=== PATIENT | male | born 1995 | race Caucasian/White ===

== ENCOUNTER 2017-07-12 18:31 | Emergency (ER) | payer OTHER, BC ==
--- NOTE | 2017-07-12 18:42 | EDPHY ---
H & P Stated Complaint: CUT 3RD DIGIT OF R HAND ON BROKEN GLASS BOTTLE AT WORK Time Seen by Provider: 07/12/17 18:41 HPI/ROS: HPI: This is a 21-year-old male who presents with Chief Complaint: CUT 3RD DIGIT OF R HAND ON BROKEN GLASS BOTTLE AT WORK Location: Tip of right middle finger Quality: Cut Duration: 15 minutes prior to arrival Signs and Symptoms: + bleeding, no radiation, no numbness, no weakness, no tingling, no decreased range of motion, no swelling, + pain Timing: acute Severity: mild to moderate Context: Patient is right-hand dominant and was at work when he put his hands inside a garbage can and accidentally cut the tip of his right middle finger on a liquor bottle. He reports mild acute pain that has since resolved accompanied by bleeding that continues despite applying pressure and wrapping with a bandage and plastic glove. Reports his tetanus up-to-date. Drove self to the emergency room. Denies any pain/paresthesias/decreased range of motion. Modifying Factors: Direct pressure Comment: ROS: see HPI Constitutional: No fever, no chills, no weight loss Eyes: No blurred vision Respiratory: No shortness of breath, no cough Cardiovascular: No chest pain Gastrointestinal: No nausea, no vomiting no diarrhea Genitourinary: No dysuria Extremities: No myalgias Neurologic: No weakness, no numbness Skin: No rashes Hematologic: No bruising, no bleeding MEDICAL/SURGICAL/SOCIAL HISTORY: Medical history: Generally healthy. Does not take any regular medications. Surgical history: Right arm fracture and repair Social history: Employed. CONSTITUTIONAL: Well-developed well-nourished young adult white male, awake and alert, no obvious distress HEENT: Atraumatic and normocephalic. NECK: supple, no midline tenderness, flexion 45 degrees, extension 45 degrees, right and left lateral flexion 45 degrees. No meningismus. Cardiovascular: Normal S1/S2, regular rate, regular rhythm, without murmur rub or gallop. PULMONARY/CHEST: Symmetrical and nontender. no crepitus. Clear to auscultation bilaterally. Good air movement. No accessory muscle usage. ABDOMEN: Soft, nondistended, nontender, no ecchymosis. EXTREMITIES: 2/2 pulses, right middle finger tip of pad shows 2 mm complete skin avulsion with mild bleeding. DIP/PIP flexion and extension intact. no deformities, no clubbing, no cyanosis or edema. NEUROLOGICAL: no focal neuro deficits. GCS 15. Light touch sensation intact. SKIN: Warm and dry, no erythema. no rash. Good capillary refill. Source: Patient Exam Limitations: No limitations - Personal History Current Tetanus/Diphtheria Vaccine: Yes - Medical/Surgical History Hx Asthma: No Hx Chronic Respiratory Disease: No Hx Diabetes: No Hx Cardiac Disease: No Hx Renal Disease: No Hx Cirrhosis: No Hx Alcoholism: No Hx HIV/AIDS: No Hx Splenectomy or Spleen Trauma: No Other PMH: FX R ARM - Social History Smoking Status: Current some day smoker Constitutional: Initial Vital Signs Temperature (C) 36.9 C 07/12/17 18:33 Heart Rate 79 07/12/17 18:33 Respiratory Rate 18 07/12/17 18:33 Blood Pressure 144/97 H 07/12/17 18:33 O2 Sat (%) 99 07/12/17 18:33 O2 Delivery Mode Room Air Allergies/Adverse Reactions: No Known Allergies Allergy (Unverified 07/12/17 18:33) Home Medications: Medication Instructions Recorded NK [No Known Home Meds] 07/12/17 Medical Decision Making Procedures: Procedure: Splint placement. A caged finger splint was applied by the Emergency Room engineering technician parking to the right middle finger. After application of the splint I returned and re-examined the patient. The splint was adequately immobilizing the joint and distal to the splint the patient's circulation and sensation was intact. ED Course/Re-evaluation: Wound care provided Irrigated thoroughly; no foreign bodies identified. Surgifoam and Koban applied for 30 minutes and hemostasis achieved. Avulsion is small and does not require suture placement. Wound will have to heal by secondary intention. Xeroform, gauze, Kerlix, caged finger splint applied. Written and verbal wound care instructions given to patient. X-ray not indicated at this time No signs of neurovascular compromise/tenting of skin/compartment syndrome/ extremities and joints examined above and below area of concern and are neurovascularly intact. Differential Diagnosis: Differential diagnosis includes but is not limited to avulsion, laceration, nerve injury, tendon injury. Departure - Departure Disposition: Home, Routine, Self-Care Clinical Impression: Avulsion of skin of finger without complication Qualifiers: Encounter type: initial encounter Qualified Code(s): S61.209A - Unspecified open wound of unspecified finger without damage to nail, initial encounter Condition: Good Instructions: Skin Avulsion (ED) Additional Instructions: Keep the dressing in place for 48 hours. After 48 hours, you may remove the dressing; wash the site daily with mild soap and water; then pat dry. Apply [id number] antibacterial ointment and clean sterile dressing daily until fully healed. Take ibuprofen 600 mg every 6-8 hours with food as needed for pain and inflammation. Apply ice for 30 minutes at a time; 2-3 times per day for the next 1-2 days. Follow up with Hand Surgery in 7-10 days at which time they will evaluate and recommend with you if further management is required. Referrals: Omari Sullivan MD [Medical Doctor] - As per Instructions
[2017-07-12 19:53] VITALS: BP 130/89; PULSE 85; RESP 16; TEMP 98.1; O2SAT 96
== END 2017-07-12 19:53 | disposition home or self-care (01) ==
DX: S61.202A Unspecified open wound of right middle finger without damage to nail, initial encounter (principal); F17.200 Nicotine dependence, unspecified, uncomplicated; W25.XXXA Contact with sharp glass, initial encounter; Y92.69 Other specified industrial and construction area as the place of occurrence of the external cause; Y99.0 Civilian activity done for income or pay; Y93.89 Activity, other specified
CPT/HCPCS: L3925